=== PATIENT | male | born 1970 | race African-American/Black ===

== ENCOUNTER 2019-04-28 03:27 | Emergency (ER) | payer OTHER ==
[~2019-04-28] VITALS: Ht 182.9 cm; Wt 90.0 kg
[2019-04-28 04:00] VITALS: BP 108/75
[2019-04-28 04:18] LABS: BASOPHILS % 1.1 % (0.0-2.0); EOSINOPHILS % 6.6 % (0.0-5.0); HEMOGLOBIN. 14.6 g/dL (14.0-18.0); LYMPHOCYTES % 27.2 % (20.0-50.0); MEAN CORPUSCULAR HEMOGLOBIN 29.5 pg (28.0-32.0); MEAN CORPUSCULAR VOLUME 86.6 fL (80.0-94.0); MEAN PLATELET VOLUME 9.4 fl (7.4-10.4); MONOCYTES % 9.1 % (2.0-8.0); PLATELET 159 x1000/uL (130-400); RED BLOOD CELL COUNT 4.96 mill/uL (4.7-6.1); RED CELL DISTRIBUTION WIDTH 13.7 % (11.6-14.6)
[2019-04-28 04:26] LABS: CHLORIDE 107 mEq/L (98-107)
== END 2019-04-28 05:43 | disposition left against medical advice (07) ==
LOC: ER 03:27 → CANBEDREQ 06:08
DX: I95.9 Hypotension, unspecified (principal); I10 Essential (primary) hypertension
CPT/HCPCS: 36415; 71045; 83605; 83880; 84484; 93005; 99291